=== PATIENT | male | born 1960 | race Caucasian/White ===

== ENCOUNTER 2019-06-14 14:48 | Inpatient (IN) | payer MEDICARE, MEDICAID ==
[~2019-06-14] VITALS: Ht 175.3 cm; Wt 90.7 kg
[2019-06-14] MEDS ORDERED: SITA100T PO (15:09)
[2019-06-14] MEDS ORDERED: VITAMIN D2 PO (15:09)
[2019-06-14] MEDS ORDERED: QUET200T PO (15:09)
[2019-06-14] MEDS ORDERED: PIOG15TA8 PO (15:09)
[2019-06-14] MEDS ORDERED: RISP3TAB14 PO (15:09)
[2019-06-14] MEDS ORDERED: PRAV10TA40 PO (15:09)
[2019-06-14] MEDS ORDERED: METF-442 PO (15:09)
[2019-06-14] MEDS ORDERED: ARIP5TAB10 PO (15:09)
[2019-06-14 15:43] LABS: BASOPHILS # (AUTO) 0.1 K/uL (0.0-8.0); BASOPHILS % (AUTO) 1.2 % (0.0-2.0); EOSINOPHILS # (AUTO) 0.3 K/uL (0.0-0.7); EOSINOPHILS % (AUTO) 4.7 % (0.0-7.0); HEMATOCRIT 43.4 % (36.7-47.1); HEMOGLOBIN 15.1 g/dL (12.5-16.3); LYMPHOCYTES # (AUTO) 1.9 K/uL (20.0-40.0); LYMPHOCYTES % (AUTO) 32.9 % (20.5-51.5); MEAN CORPUSCULAR HEMOGLOBIN 29.9 uug (23.8-33.4); MEAN CORPUSCULAR HGB CONC 35 g/dL (32.5-36.3); MEAN CORPUSCULAR VOLUME 86.2 fL (73.0-96.2); MONOCYTES # (AUTO) 0.4 K/uL (2.0-10.0); MONOCYTES % (AUTO) 7.7 % (0.0-11.0); NEUTROPHILS # (AUTO) 3.1 K/uL (1.8-8.9); NEUTROPHILS % (AUTO) 53.5 % (38.5-71.5); PLATELET COUNT (AUTO) 100 K/uL (152-348); RED BLOOD CELL COUNT(AUTO) 5.04 MIL/uL (4.06-5.63); WHITE BLOOD COUNT (AUTO) 5.7 K/uL (3.6-10.2)
[2019-06-14 15:56] LABS: CARBON DIOXIDE 28 mmol/L (21-32); CHLORIDE 100 mmol/L (98-107); CREATININE 0.8 mg/dL (0.6-1.3); GLUCOSE 250 mg/dL (74-106); POTASSIUM 3.9 mmol/L (3.5-5.1); UREA NITROGEN, BLOOD 10 mg/dL (7-18)
[2019-06-14 16:02] LABS: ALANINE AMINOTRANSFERASE 45 U/L (16-63); ALKALINE PHOSPHATASE 102 U/L (50-136); ASPARTATE AMINOTRANSFERASE 24 U/L (15-37); BILIRUBIN,DIRECT 0.1 mg/dL (0.0-0.2); BILIRUBIN,TOTAL 0.5 mg/dL (0.2-1.0); ETHANOL < 3 MG/DL (0-0); TOTAL PROTEIN, SERUM 7.9 g/dL (6.4-8.2)
[2019-06-14 16:05] LABS: ACETAMINOPHEN < 2.0 ug/mL (10-30)
[2019-06-14 16:10] LABS: THYROID STIMULATING HORMONE 2.269 mIU/mL (0.358-3.740)
[2019-06-14 17:23] LABS: *BILIRUBIN,URIN NEGATIVE (NEGATIVE); *BLOOD, URINE NEGATIVE (NEGATIVE); *CLARITY,URINE CLEAR (CLEAR); *COLOR,URINE YELLOW (YELLOW); *KETONES,URINE NEGATIVE (NEGATIVE); *UROBILINOGEN,URINE 0.2 E.U./dl (NORMAL); LEUKOCYTE ESTERASE ,URINE NEGATIVE (NEGATIVE); NITRITE, URINE NEGATIVE (NEGATIVE); UGLUCOSE 2+ (NEGATIVE)
[2019-06-14 17:26] LABS: URINE AMORPHOUS URATE FEW /HPF; WBC,URINE 0-3 /HPF (0-3)
[2019-06-14 17:27] LABS: *AMPHETAMINE, URINE NEGATIVE (NEGATIVE); *BARBITURATE, URINE NEGATIVE (NEGATIVE); *CANNABINOID, URINE NEGATIVE (NEGATIVE); *COCCAINE, URINE NEGATIVE (NEGATIVE); *OPIATE, URINE NEGATIVE (NEGATIVE); *PHENCYCLIDINE SCREEN,URINE NEGATIVE (NEGATIVE); MUCUS,URINE MODERATE /LPF (0-FEW)
[2019-06-14] MEDS ORDERED: ACETAMINOPHEN 325 MG TABLET PO PRN (20:00)
[2019-06-14] MEDS ORDERED: MAG HYDROX/AL HYDROX/SIMETH 30 ML LIQUID UDC PO PRN (20:00)
[2019-06-14] MEDS ORDERED: MAGNESIUM HYDROXIDE 30 ML LIQUID UDC PO PRN (20:00)
[2019-06-14] MEDS ORDERED: LORAZEPAM 0.5 MG TABLET PO PRN (20:00)
[2019-06-14] MEDS ORDERED: TEMAZEPAM 7.5 MG CAPSULE PO PRN (20:00)
[2019-06-14 20:32] VITALS: BP 131/106
[2019-06-15] MEDS ORDERED: DEXTROSE 50% 50 ML DISP.SYRIN IV PRN
[2019-06-15] MEDS ORDERED: MAGNESIUM HYDROXIDE 30 ML LIQUID UDC PO PRN (05:00)
[2019-06-15] MEDS ORDERED: MAG HYDROX/AL HYDROX/SIMETH 30 ML LIQUID UDC PO PRN (05:00)
[2019-06-15] MEDS ORDERED: ACETAMINOPHEN 325 MG TABLET PO PRN (05:00)
[2019-06-15] MEDS ORDERED: LORAZEPAM 1 MG TABLET PO PRN (05:00)
[2019-06-15] MEDS: BLOOD SUGAR DIAGNOSTIC 1 EACH STRIP VI SCH ×4 (07:27→20:51)
[2019-06-15 07:30] VITALS: BP 136/72
[2019-06-15] MEDS: PIOGLITAZONE HCL 15 MG TABLET PO SCH (08:48)
[2019-06-15] MEDS ORDERED: VITAMIN D2 1.25 MG PO SCH (09:00)
[2019-06-15] MEDS ORDERED: Medication Not On Formulary EA (Pravastatin Sodium 1 TAB) PO SCH (09:00)
[2019-06-15] MEDS ORDERED: Medication Not On Formulary EA (Metformin Hcl 1,000 MG) PO SCH (09:00)
[2019-06-15 15:37] VITALS: BP 117/64
[2019-06-15] MEDS: INSULIN REGULAR, HUMAN 300 UNIT/3 ML VIAL SQ PRN (16:28)
[2019-06-15] MEDS: METFORMIN HCL 500 MG TABLET PO SCH (17:37)
[2019-06-15 19:58] VITALS: BP 139/70
[2019-06-15] MEDS: ATORVASTATIN 10 MG TABLET PO SCH (21:00)
[2019-06-15] MEDS: INSULIN REGULAR, HUMAN 300 UNITS/3 ML VIAL SQ PRN (21:08)
[2019-06-16] MEDS: BLOOD SUGAR DIAGNOSTIC 1 EACH STRIP VI SCH ×4 (06:44→21:05)
[2019-06-16 07:30] VITALS: BP_SYST 104; BP_SYST 116; BP_DIAS 61; BP_DIAS 64
[2019-06-16] MEDS ORDERED: HALOPERIDOL 1 MG TABLET PO SCH (09:00)
[2019-06-16] MEDS: PIOGLITAZONE HCL 15 MG TABLET PO SCH (09:30)
[2019-06-16] MEDS: DIVALPROEX 250 MG TABLET.DR PO SCH ×3 (09:30→17:26)
[2019-06-16] MEDS: ERGOCALCIFEROL 50,000 UNIT CAPSULE PO SCH (09:30)
[2019-06-16] MEDS: BENZTROPINE MESYLATE 1 MG TABLET PO SCH ×3 (09:31→17:26)
[2019-06-16] MEDS: METFORMIN HCL 500 MG TABLET PO SCH ×2 (09:31→17:26)
[2019-06-16] MEDS: INSULIN REGULAR, HUMAN 300 UNIT/3 ML VIAL SQ PRN ×2 (09:33→12:40)
[2019-06-16] MEDS: HALOPERIDOL 5 MG TABLET PO SCH ×2 (12:44→17:26)
[2019-06-16] MEDS: ASPIRIN EC 81 MG TABLET.DR PO SCH (13:53)
[2019-06-16 16:00] VITALS: BP 139/67
[2019-06-16 20:43] VITALS: BP 132/75
[2019-06-16] MEDS: ATORVASTATIN 10 MG TABLET PO SCH (21:03)
[2019-06-16] MEDS: INSULIN REGULAR, HUMAN 300 UNITS/3 ML VIAL SQ PRN (21:06)
[2019-06-16] MEDS: TEMAZEPAM 7.5 MG CAPSULE PO PRN (21:13)
[2019-06-17] MEDS: BLOOD SUGAR DIAGNOSTIC 1 EACH STRIP VI SCH ×4 (06:52→20:50)
[2019-06-17 07:30] VITALS: BP 126/77
[2019-06-17] MEDS: METFORMIN HCL 500 MG TABLET PO SCH ×2 (08:16→17:45)
[2019-06-17] MEDS: HALOPERIDOL 5 MG TABLET PO SCH ×3 (08:17→16:06)
[2019-06-17] MEDS: ASPIRIN EC 81 MG TABLET.DR PO SCH (08:17)
[2019-06-17] MEDS: BENZTROPINE MESYLATE 1 MG TABLET PO SCH ×3 (08:17→16:06)
[2019-06-17] MEDS: DIVALPROEX 250 MG TABLET.DR PO SCH ×3 (08:17→16:06)
[2019-06-17] MEDS: INSULIN REGULAR, HUMAN 300 UNIT/3 ML VIAL SQ PRN (08:22)
[2019-06-17] MEDS: PIOGLITAZONE HCL 15 MG TABLET PO SCH (08:23)
[2019-06-17] MEDS ORDERED: HALOPERIDOL DECANOATE 50 MG/1 ML AMPUL IM ONE (15:00)
[2019-06-17 16:03] VITALS: BP 113/69
[2019-06-17] MEDS: ATORVASTATIN 10 MG TABLET PO SCH (20:53)
[2019-06-17 20:54] VITALS: BP 148/86
[2019-06-17] MEDS: INSULIN REGULAR, HUMAN 300 UNITS/3 ML VIAL SQ PRN (20:58)
[2019-06-17] MEDS: TEMAZEPAM 7.5 MG CAPSULE PO PRN (21:25)
[2019-06-18] MEDS: BLOOD SUGAR DIAGNOSTIC 1 EACH STRIP VI SCH ×4 (06:34→20:39)
[2019-06-18 07:30] VITALS: BP 105/75
[2019-06-18] MEDS: ASPIRIN EC 81 MG TABLET.DR PO SCH (08:23)
[2019-06-18] MEDS: PIOGLITAZONE HCL 15 MG TABLET PO SCH (08:23)
[2019-06-18] MEDS: HALOPERIDOL 5 MG TABLET PO SCH ×3 (08:23→17:05)
[2019-06-18] MEDS: DIVALPROEX 250 MG TABLET.DR PO SCH ×3 (08:24→17:06)
[2019-06-18] MEDS: BENZTROPINE MESYLATE 1 MG TABLET PO SCH ×3 (08:24→17:05)
[2019-06-18] MEDS: METFORMIN HCL 500 MG TABLET PO SCH ×2 (08:24→17:05)
[2019-06-18 16:00] VITALS: BP 125/68
[2019-06-18 19:46] VITALS: BP 119/69
[2019-06-18] MEDS: ATORVASTATIN 10 MG TABLET PO SCH (20:32)
[2019-06-18] MEDS: TEMAZEPAM 7.5 MG CAPSULE PO PRN (21:05)
[2019-06-19] MEDS: BLOOD SUGAR DIAGNOSTIC 1 EACH STRIP VI SCH ×4 (06:37→20:54)
[2019-06-19 07:30] VITALS: BP 134/75
[2019-06-19] MEDS: DIVALPROEX 250 MG TABLET.DR PO SCH ×3 (08:28→16:40)
[2019-06-19] MEDS: METFORMIN HCL 500 MG TABLET PO SCH ×2 (08:28→18:29)
[2019-06-19] MEDS: ASPIRIN EC 81 MG TABLET.DR PO SCH (08:28)
[2019-06-19] MEDS: HALOPERIDOL 5 MG TABLET PO SCH ×3 (08:28→16:40)
[2019-06-19] MEDS: BENZTROPINE MESYLATE 1 MG TABLET PO SCH ×3 (08:28→16:40)
[2019-06-19] MEDS: PIOGLITAZONE HCL 15 MG TABLET PO SCH (08:28)
[2019-06-19 16:00] VITALS: BP 95/66
[2019-06-19 19:42] VITALS: BP 133/80
[2019-06-19] MEDS: ATORVASTATIN 10 MG TABLET PO SCH (20:53)
[2019-06-20] MEDS: BLOOD SUGAR DIAGNOSTIC 1 EACH STRIP VI SCH ×4 (07:04→21:02)
[2019-06-20 07:30] VITALS: BP 130/71
[2019-06-20] MEDS: METFORMIN HCL 500 MG TABLET PO SCH ×2 (08:18→17:57)
[2019-06-20] MEDS: PIOGLITAZONE HCL 15 MG TABLET PO SCH (08:18)
[2019-06-20] MEDS: HALOPERIDOL 5 MG TABLET PO SCH ×3 (08:18→16:53)
[2019-06-20] MEDS: BENZTROPINE MESYLATE 1 MG TABLET PO SCH ×3 (08:18→16:53)
[2019-06-20] MEDS: ASPIRIN EC 81 MG TABLET.DR PO SCH (08:18)
[2019-06-20] MEDS: DIVALPROEX 250 MG TABLET.DR PO SCH ×3 (08:18→16:53)
[2019-06-20 15:22] VITALS: BP 127/72
[2019-06-20] MEDS: INSULIN REGULAR, HUMAN 300 UNIT/3 ML VIAL SQ PRN (16:21)
[2019-06-20 19:39] VITALS: BP 134/73
[2019-06-20] MEDS: ATORVASTATIN 10 MG TABLET PO SCH (20:58)
[2019-06-21] MEDS: BLOOD SUGAR DIAGNOSTIC 1 EACH STRIP VI SCH ×2 (06:30→11:30)
[2019-06-21 07:30] VITALS: BP 115/76
[2019-06-21] MEDS: BENZTROPINE MESYLATE 1 MG TABLET PO SCH ×3 (08:39→17:17)
[2019-06-21] MEDS: DIVALPROEX 250 MG TABLET.DR PO SCH ×3 (08:39→17:17)
[2019-06-21] MEDS: PIOGLITAZONE HCL 15 MG TABLET PO SCH (08:39)
[2019-06-21] MEDS: METFORMIN HCL 500 MG TABLET PO SCH ×2 (08:39→17:17)
[2019-06-21] MEDS: HALOPERIDOL 5 MG TABLET PO SCH ×3 (08:39→17:17)
[2019-06-21] MEDS: ASPIRIN EC 81 MG TABLET.DR PO SCH (08:39)
[2019-06-21] MEDS ORDERED: DEXTROSE 50% 50 ML DISP.SYRIN IV PRN (12:33)
[2019-06-21] MEDS ORDERED: INSULIN REGULAR, HUMAN 300 UNIT/3 ML VIAL SQ PRN (15:00)
[2019-06-21 16:00] VITALS: BP 133/75
[2019-06-21 19:41] VITALS: BP 129/86
[2019-06-21] MEDS: ATORVASTATIN 10 MG TABLET PO SCH (20:13)
[2019-06-22] MEDS: BLOOD SUGAR DIAGNOSTIC 1 EACH STRIP VI SCH (06:45)
[2019-06-22] MEDS: METFORMIN HCL 500 MG TABLET PO SCH ×2 (08:16→17:12)
[2019-06-22] MEDS: PIOGLITAZONE HCL 15 MG TABLET PO SCH (08:16)
[2019-06-22] MEDS: DIVALPROEX 250 MG TABLET.DR PO SCH ×3 (08:16→17:12)
[2019-06-22] MEDS: BENZTROPINE MESYLATE 1 MG TABLET PO SCH ×3 (08:16→17:12)
[2019-06-22] MEDS: HALOPERIDOL 5 MG TABLET PO SCH ×3 (08:16→17:12)
[2019-06-22] MEDS: ASPIRIN EC 81 MG TABLET.DR PO SCH (08:16)
[2019-06-22 08:30] VITALS: BP 134/67
[2019-06-22 15:22] VITALS: BP 113/69
[2019-06-22] MEDS: ATORVASTATIN 10 MG TABLET PO SCH (20:16)
[2019-06-22 20:25] VITALS: BP 124/78
[2019-06-23] MEDS: BLOOD SUGAR DIAGNOSTIC 1 EACH STRIP VI SCH (06:56)
[2019-06-23 07:30] VITALS: BP 118/71
[2019-06-23] MEDS: PIOGLITAZONE HCL 15 MG TABLET PO SCH (08:54)
[2019-06-23] MEDS: ERGOCALCIFEROL 50,000 UNIT CAPSULE PO SCH (08:54)
[2019-06-23] MEDS: HALOPERIDOL 5 MG TABLET PO SCH ×2 (08:55→12:51)
[2019-06-23] MEDS: METFORMIN HCL 500 MG TABLET PO SCH (08:55)
[2019-06-23] MEDS: BENZTROPINE MESYLATE 1 MG TABLET PO SCH ×2 (08:55→12:51)
[2019-06-23] MEDS: ASPIRIN EC 81 MG TABLET.DR PO SCH (08:55)
[2019-06-23] MEDS ORDERED: DIVALPROEX 250 MG TABLET.DR PO SCH (09:00)
[2019-06-23] MEDS ORDERED: DIVALPROEX 500 MG TABLET.DR PO SCH (09:00)
[2019-07-17] MEDS ORDERED: HALOPERIDOL DECANOATE 50 MG/1 ML AMPUL IM ONE (09:00)
== END 2019-06-23 14:00 | disposition home or self-care (01) | DRG 885 ==
LOC: ER 14:48 → GPS 19:52
PROVIDERS: ADMIT Psychiatry & Neurology Psychiatry; ATTEND Student in an Organized Health Care Education/Training Program
DX: F25.9 Schizoaffective disorder, unspecified (principal); E11.65 Type 2 diabetes mellitus with hyperglycemia; E78.5 Hyperlipidemia, unspecified; Z79.84 Long term (current) use of oral hypoglycemic drugs; Z91.83 Wandering in diseases classified elsewhere; Z79.899 Other long term (current) drug therapy; Z91.14 Patient's other noncompliance with medication regimen
CPT/HCPCS: 36415; 70030-TC; 71045; 80164; 80307; 84443; 85025; 93005; A4663; G0480; G0480-TC; J1631; J1815; J3490